=== PATIENT | male | born 1935 | race Caucasian/White ===

== ENCOUNTER 2017-09-11 12:09 | Emergency (ER) | payer MEDICARE ==
[2017-09-11 13:13] LABS: HEMATOCRIT 31.8 % (42.0-52.0); HEMOGLOBIN 9.9 gm/dl (14.0-18.0); MEAN CELL VOLUME 92.2 fl (81-97); MEAN CORPUSCULAR HGB CONC 31.1 g/dl (32-36); MEAN PLATELET VOLUME 9.5 fl (7.4-10.4); PLATELET COUNT 51 K/uL (130-400); RED BLOOD COUNT 3.45 M/uL (4.40-5.70); RED CELL DISTRIBUTION WIDTH 15.1 % (11.5-14.5); WHITE BLOOD COUNT W/O DIFF 3.9 K/uL (4.2-12.2)
[2017-09-11 13:16] LABS: MEAN CORPUSCULAR HEMOGLOBIN 28.6 pg (27-33)
[2017-09-11 13:26] LABS: INR 2.64; PROTHROMBIN TIME (PATIENT) 28.8 SECONDS (9.5-12.1)
--- NOTE | 2017-09-11 13:27 | Emergency Department Record ---
History of Present Illness - General Chief Complaint: Fall Injury Stated Complaint: FALL Time Seen by Provider: 09/11/17 12:44 Source: Patient, Family Mode of Arrival: Wheelchair Limitations: No limitations - History of Present Illness Initial Comments: pt fell on stairs yesterday, c/o pain in l wrist, ribs, r arm Complaint: Fall Onset/Timin -: Days(s) Fall From: Down stairs (#) When Fall Occurred: 24 hours [employer] Fall Witnessed: Yes, by family Place Fall Occurred: Home Loss of Consciousness: None Prolonged Down Time?: No Symptoms Prior to Fall: None Severity: Moderate Severity scale (1-10): 3 Quality: Aching Context: Tripped/slipped - [place] Coma Scale Eye Response: (4) Open spontaneously Motor Response: (6) Obeys commands Verbal Response: (5) Oriented [place] Total: 15 - Related Data Home Medications Medication Instructions Recorded Confirmed Last Taken Atorvastatin Calcium 40 mg PO DAILY 09/11/17 09/11/17 Unknown Furosemide [Lasix] 20 mg PO DAILY 09/11/17 09/11/17 Unknown Isosorbide Mononitrate [Imdur] 60 mg PO DAILY 09/11/17 09/11/17 Unknown Metoprolol Tartrate [Lopressor] 25 mg PO DAILY 09/11/17 09/11/17 Unknown Ranolazine [Ranexa] 1 tab PO BID 09/11/17 09/11/17 Unknown Risperidone [Risperdal] 5 mg PO BID 09/11/17 09/11/17 Unknown Trazodone HCl 50 mg PO BID 09/11/17 09/11/17 Unknown Warfarin Sodium [Coumadin] 7.5 mg PO DAILY 09/11/17 09/11/17 Unknown Allergies Allergy/AdvReac Type Severity Reaction Status Date / Time codeine Allergy Mild ITCHING Verified 06/13/16 15:57 Travel Screening - Travel/Exposure Within Last 30 Days Have you traveled within the last 30 days?: No - Travel/Exposure Within Last Year Have you traveled outside the [place] in the last year?: No - Additonal Travel Details Have you been exposed to anyone with a communicable illness?: No Review of Systems Reviewed: No additional complaints except as noted below Constitutional: Reports: As per HPI. Denies: Chills, Fever, Malaise, Night sweats, Weakness, Weight change Eyes: Reports: As per HPI. Denies: Eye discharge, Eye pain, Photophobia, Vision change ENT: Reports: As per HPI. Denies: Congestion, Dental pain, Ear pain, Epistaxis , Hearing loss, Throat pain Respiratory: Reports: As per HPI. Denies: Cough, Dyspnea, Hemoptysis, Stridor, Wheezes Cardiovascular: Reports: As per HPI. Denies: Arrhythmia, Chest pain, Dyspnea on exertion, Edema, Murmurs, Orthopnea, Palpitations, Paroxysmal nocturnal dyspnea, Rheumatic Fever, Syncope Endocrine: Reports: As per HPI. Denies: Fatigue, Heat or cold intolerance, Polydipsia, Polyuria Gastrointestinal: Reports: As per HPI. Denies: Abdominal pain, Constipation, Diarrhea, Hematemesis, Hematochezia, Melena, Nausea, Vomiting Genitourinary: Reports: As per HPI. Denies: Dysuria, Frequency, Hematuria, Incontinence, Retention, Testicular pain, Testicular mass, Urgency Musculoskeletal: Reports: As per HPI. Denies: Arthralgia, Back pain, Gout, Joint swelling, Myalgia, Neck pain Skin: Reports: As per HPI. Denies: Bruising, Change in color, Change in hair/ nails, Lesions, Pruritus, Rash Neurological: Reports: As per HPI. Denies: Abnormal gait, Confusion, Headache, Numbness, Paresthesias, Seizure, Tingling, Tremors, Vertigo, Weakness Psychiatric: Reports: As per HPI. Denies: Anxiety, Auditory hallucinations, Depression, Homicidal thoughts, Suicidal thoughts, Visual hallucinations Hematological/Lymphatic: Reports: As per HPI. Denies: Anemia, Blood Clots, Easy bleeding, Easy bruising, Swollen glands Past Medical History - SOCIAL HISTORY Smoking Status: Never smoker Alcohol Use: None Drug Use: None - RESPIRATORY Hx Respiratory Disorders: No - CARDIOVASCULAR Hx Cardio Disorders: Yes Hx Abnormal EKG: Yes Hx Cardiac Cath: Yes Hx Chest Pain: Yes Hx CHF: Yes Hx Deep Vein Thrombosis: No Hx Edema: Yes Hx Heart Attack: Yes Hx Hypertension: Yes Hx Hypotension: No Hx Irregular Heartbeat: No Hx Palpitations: No Hx Pacemaker/Defib: No Hx Vascular Disease: No - NEURO Hx Neuro Disorders: Yes Hx Dementia: Yes - GI Hx GI Disorders: No - Hx Genitourinary Disorders: No - ENDOCRINE Hx Endocrine Disorders: Yes Hx Diabetes: Yes (takes no medicaitons) Hx Thyroid Disease: No - MUSCULOSKELETAL Hx Musculoskeletal Disorders: No - PSYCH Hx Psych Problems: No - HEMATOLOGY/ONCOLOGY Hx Hematology/Oncology Disorders: No Family Medical History Any Significant Family History?: Yes Hx Heart Disease: Father Physical Exam - General General Appearance: Alert, Oriented x3, Cooperative, Mild distress - Head Head exam: Normal inspection - Eye Eye exam: Normal appearance, PERRL, EOMI Pupils: Normal accommodation - ENT ENT exam: Normal exam, Mucous membranes moist, Normal external ear exam, Normal orophraynx, TM's normal bilaterally Ear exam: Normal external inspection. negative: External canal tenderness Nasal Exam: Normal inspection. negative: Discharge, Sinus tenderness Mouth exam: Normal external inspection, Tongue normal Teeth exam: Normal inspection. negative: Dental caries Throat exam: Normal inspection. negative: Tonsillar erythema, Tonsillar exudate - Neck Neck exam: Normal inspection, Full ROM. negative: Tenderness - Respiratory Respiratory exam: Normal lung sounds bilaterally. negative: Respiratory distress - Cardiovascular Cardiovascular Exam: Regular rate, Normal rhythm, Normal heart sounds - GI/Abdominal GI/Abdominal exam: Soft, Normal bowel sounds. negative: Tenderness - Rectal Rectal exam: Deferred - exam: Deferred - Extremities Extremities exam: Full ROM, Normal capillary refill, Tenderness Image of Full Body: 1 - tender 2 - skin tear, tender - Back Back exam: Reports: Normal inspection, Full ROM. Denies: Muscle spasm, Rash noted, Tenderness - Neurological Neurological exam: Alert, CN II-XII intact, Normal gait, Oriented X3 - Psychiatric Psychiatric exam: Normal affect, Normal mood - Skin Skin exam: Dry, Intact, Normal color, Warm Course Vital Signs 09/11/17 12:15 Temperature 97.4 F L Pulse Rate 88 Respiratory 20 Rate Blood Pressure 114/65 Pulse Ox 99 Medical Decision Making - Lab Data Result diagrams: 09/11/17 13:05 09/11/17 13:05 Lab Results 09/11/17 Range/Units 13:05 WBC 3.9 L (4.2-12.2) K/uL RBC 3.45 L (4.40-5.70) M/uL Hgb 9.9 L (14.0-18.0) gm/dl Hct 31.8 L (42.0-52.0) % MCV 92.2 (81-97) fl MCH 28.6 (27-33) pg MCHC 31.1 L (32-36) g/dl RDW 15.1 H (11.5-14.5) % Plt Count 51 L (130-400) K/uL MPV 9.5 (7.4-10.4) fl Eosinophils % Not Reportable Basophils % Not Reportable Disposition Disposition: Discharge Clinical Impression: Rib fractures Qualifiers: Encounter type: initial encounter Rib fracture type: multiple ribs Fracture type: closed Laterality: right Qualified Code(s): S22.41XA - Multiple fractures of ribs, right side, initial encounter for closed fracture Disposition: Home, Self-Care Condition: (1) Good Instructions: Fall Prevention for Older Adults (ED), Rib Fracture (ED), Skin Tear (ED) Additional Instructions: follow up with family doctor. return sooner if worse. deep inspiration times 5 every hour. tylenol every 4-6 hours for pain. ice to sore area Forms: Patient Portal Access Quality - Quality Measures Quality Measures: N/A - Blood Pressure Screening Does Patient Have Any of the Following: No Blood Pressure Classification: Normal BP Reading Systolic Measurement: 114 Diastolic Measurement: 65 Screening for High Blood Pressure: < Normal BP, F/U Not Required > [G8783]
[2017-09-11 13:29] LABS: CREATININE 1.8 mg/dL (0.7-1.2)
--- NOTE | 2017-09-11 14:40 | RADIOLOGY REPORT ---
EXAM: CHEST, TWO VIEWS HISTORY: FALL, COUGH, RIB PAIN. TECHNIQUE: Two views of the chest were obtained. Comparison: Chest x-ray 04/25/17. Encounter: Initial. FINDINGS: Sternal wires in left side pacemaker are present. The lungs are clear. The cardiac silhouette and diaphragm are unremarkable. Osteopenia with compromised rib detail. 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 No obvious displaced rib fractures. IMPRESSION: 1. THE LUNGS ARE CLEAR. 2. COMPROMISED RIB DETAIL DUE TO OSTEOPENIA AND CHEST X-RAY TECHNIQUE. NO DISPLACED RIB FRACTURES. 3. CHRONIC OSTEOPOROTIC COMPRESSION FRACTURE LOWER THORACIC SPINE. JOB NUMBER: [id number] [facility]
--- NOTE | 2017-09-11 14:59 | RADIOLOGY REPORT ---
EXAM: LEFT WRIST, THREE VIEWS HISTORY: FALL, LEFT WRIST INJURY AND PAIN. TECHNIQUE: Three views of the left wrist were obtained. Comparison: None. Encounter: Initial. FINDINGS: Osteopenia. Ulnar neutral variance. No acute fracture or dislocation. 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 Vascular calcification. IMPRESSION: NEGATIVE FOR ACUTE FRACTURE OF THE LEFT WRIST. JOB NUMBER: [id number] [facility]
--- NOTE | 2017-09-11 15:01 | RADIOLOGY REPORT ---
EXAM: RIGHT HUMERUS, THREE VIEWS HISTORY: FALL, SKIN ABRASIONS, RIGHT HUMERAL INJURY AND PAIN. TECHNIQUE: Three views of the right humerus were obtained. Comparison: None. FINDINGS: The right humerus is intact with no acute humeral fracture. Anchoring devices overlie the right humeral head. Acute nondisplaced fractures anterior right ninth and tenth ribs. IMPRESSION: 1. INCIDENTAL NOTE IS MADE OF ACUTE NONDISPLACED FRACTURE OF THE ANTERIOR RIGHT NINTH AND TENTH RIBS. 2. THE RIGHT HUMERUS IS INTACT. JOB NUMBER: [id number] [facility]
[2017-09-11 17:15] LABS: BASO % 0.3 % (0-6); EOS % 9.8 % (0-6); GRAN % 64.8 % (47-80); LYMPH % 11.1 % (16-45)
[2017-09-11 17:16] LABS: PLATELET ESTIMATE DECREASED (NORMAL)
== END 2017-09-11 15:02 | disposition home or self-care (01) ==
LOC: ER 12:09
DX: S22.41XA Multiple fractures of ribs, right side, initial encounter for closed fracture (principal); S41.111A Laceration without foreign body of right upper arm, initial encounter; M25.532 Pain in left wrist; R05 Cough; E11.9 Type 2 diabetes mellitus without complications; I10 Essential (primary) hypertension; I25.2 Old myocardial infarction; Z79.01 Long term (current) use of anticoagulants; W10.9XXA Fall (on) (from) unspecified stairs and steps, initial encounter; Y92.009 Unspecified place in unspecified non-institutional (private) residence as the place of occurrence of the external cause
CPT/HCPCS: 71020; 80048; 85027; 85610; 99283; 99284

== ENCOUNTER 2017-09-23 15:45 | Emergency (ER) | payer MEDICARE ==
[2017-09-23] MEDS ORDERED: 0.9 % SODIUM CHLORIDE 1000ML 500 ML IV SCH (16:30)
--- NOTE | 2017-09-23 16:31 | Emergency Department Record ---
History of Present Illness - General Chief complaint: Male Urogenital Problem Stated complaint: POSSIBLE UTI Time Seen by Provider: 09/23/17 16:26 Source: Family Mode of Arrival: Wheelchair Limitations: No limitations - History of Present Illness Initial comments: 82 yo male presents to ED for evaluation of decreased level of responsiveness for the past several days, decreased PO intake, and increased agitation at home. Family at the bedside reports a history of dementia, has been worsening of late. Family denies fevers, chills, or recent illness. Family called visiting nurse, was told to come to ED for possible UTI. MD Complaint: Other Onset/Timin -: Days(s) Severity: Moderate Consistency: Constant Improves with: None Worsens with: None - Related Data Sexually active: No Allergies Allergy/AdvReac Type Severity Reaction Status Date / Time codeine Allergy Mild ITCHING Verified 09/23/17 16:21 Travel Screening - Travel/Exposure Within Last 30 Days Have you traveled within the last 30 days?: No - Travel/Exposure Within Last Year Have you traveled outside the [place] in the last year?: No - Additonal Travel Details Have you been exposed to anyone with a communicable illness?: No - Travel Symptoms Symptom Screening: None Review of Systems ROS unobtainable: Due to mental status Past Medical History - SOCIAL HISTORY Smoking Status: Never smoker Alcohol Use: None Drug Use: None - RESPIRATORY Hx Respiratory Disorders: No - CARDIOVASCULAR Hx Cardio Disorders: Yes Hx Abnormal EKG: Yes Hx Cardiac Cath: Yes Hx Chest Pain: Yes Hx CHF: Yes Hx Deep Vein Thrombosis: No Hx Edema: Yes Hx Heart Attack: Yes Hx Hypertension: Yes Hx Hypotension: No Hx Irregular Heartbeat: No Hx Palpitations: No Hx Pacemaker/Defib: Yes (AICD) Hx Vascular Disease: No - NEURO Hx Neuro Disorders: Yes Hx Dementia: Yes - GI Hx GI Disorders: No - Hx Genitourinary Disorders: No - ENDOCRINE Hx Endocrine Disorders: Yes Hx Diabetes: Yes (takes no medicaitons) Hx Thyroid Disease: No - MUSCULOSKELETAL Hx Musculoskeletal Disorders: No - PSYCH Hx Psych Problems: No - HEMATOLOGY/ONCOLOGY Hx Hematology/Oncology Disorders: No Family Medical History Any Significant Family History?: Yes Hx Heart Disease: Father Physical Exam - General General Appearance: Other (awake, does not respond to voice, ) Limitations: Altered mental status - Head Head exam: Atraumatic, Normocephalic, Normal inspection Head exam detail: negative: Abrasion, Contusion, Morse's sign, General tenderness, Hematoma, Laceration - Eye Eye exam: Normal appearance. negative: Conjunctival injection, Periorbital swelling, Periorbital tenderness, Scleral icterus - ENT Ear exam: negative: Auricular hematoma, Auricular trauma Nasal Exam: negative: Active bleeding, Discharge, Dried blood, Foreign body Mouth exam: negative: Drooling, Laceration, Muffled voice, Tongue elevation - Neck Neck exam: Normal inspection. negative: Meningismus, Tenderness - Respiratory Respiratory exam: Normal lung sounds bilaterally. negative: Rales, Respiratory distress, Rhonchi, Stridor - Cardiovascular Cardiovascular Exam: Regular rate, Normal rhythm, Normal heart sounds - GI/Abdominal GI/Abdominal exam: Soft. negative: Rebound, Rigid, Tenderness - Rectal Rectal exam: Deferred - exam: Deferred - Extremities Extremities exam: Normal inspection, Pedal edema. negative: Tenderness - Back Back exam: Denies: CVA tenderness (R), CVA tenderness (L) - Neurological Neurological exam: Alert, Normal gait, Oriented X3 - Psychiatric Psychiatric exam: Normal affect, Normal mood - Skin Skin exam: Normal color. negative: Abrasion Type of lesion: negative: abrasion Course Vital Signs 09/23/17 16:10 Temperature 98.0 F Pulse Rate 86 Respiratory 20 Rate Blood Pressure 145/86 Pulse Ox 96 - Reevaluation(s) Reevaluation #1: 09/23/17 17:10 Labs reviewed, INR 4.64, BUN 38/Creatinine 1.8, Hgb 8.6, platelets are 99K. UA pending. Reevaluation #2: 09/23/17 17:33 CT Brain: Bilateral SDH Bialteral acute SAH Left sided acute SDH Ventricular hemorrhage present. K-centra ordered to infuse to reverse Coumadin. Will initiate transfer to [facility] for Neuro ICU admission. Reevaluation #3: 09/23/17 17:42 Case was discussed with Dr. Garrison (Supervisor Residential) and Dr. Miranda (Neurosurgery), will accept transfer to [facility] NICU. Did not recommend Vitamin K in addition to Kcentra. Patient and family members were updated on all results thus far as well pending transfer. Reevaluation #4: 09/23/17 18:24 Patient reassessed, Kcentra is infusing, resting comfortably awaiting bed assignment at [facility]. Reevaluation #5: 09/23/17 18:44 Bed assignment received, ACLS rig contacted for transfer. Medical Decision Making - Lab Data Result diagrams: 09/23/17 16:30 09/23/17 16:30 Critical Care Time Critical Care Time: Yes Total Critical Care Time: 60 Critical Care Time: Diagnosis and treatment for acute on chronic SDH, SAH, neurosurgery consultation , reversal of elevated INR level, and initiation of transfer to [facility] Neuro ICU. Disposition Disposition: Transfer Clinical Impression: SDH (subdural hematoma), SAH (subarachnoid hemorrhage), Warfarin-induced coagulopathy CRF (chronic renal failure) Qualifiers: Chronic kidney disease stage: stage 3 (moderate) Qualified Code(s): N18.3 - Chronic kidney disease, stage 3 (moderate) Anemia Qualifiers: Anemia type: unspecified type Qualified Code(s): D64.9 - Anemia, unspecified Disposition: Acute Care Hospital Transfer Transfer To: [facility] Reason For Transfer: Neurosurgery consultation for SAH/SDH Accepting Physician: Hugo Time Discussed w/Accepting Physician: 17:49 Condition: (3) Guarded Forms: Patient Portal Access Time of Disposition: 17:49 Quality - Quality Measures Quality Measures: N/A - Blood Pressure Screening Does Patient Have Any of the Following: Active Dx of HTN Blood Pressure Classification: Pre-Hypertensive BP Reading Systolic Measurement: 145 Diastolic Measurement: 86 Screening for High Blood Pressure: Patient Exclusion, Hx of HTN [G9744]
[2017-09-23 16:47] LABS: HEMATOCRIT 27.3 % (42.0-52.0); HEMOGLOBIN 8.6 gm/dl (14.0-18.0); MEAN CELL VOLUME 91.6 fl (81-97); MEAN CORPUSCULAR HGB CONC 31.5 g/dl (32-36); MEAN PLATELET VOLUME 9.9 fl (7.4-10.4); PLATELET COUNT 99 K/uL (130-400); RED BLOOD COUNT 2.98 M/uL (4.40-5.70); RED CELL DISTRIBUTION WIDTH 15.5 % (11.5-14.5)
[2017-09-23 16:53] LABS: MEAN CORPUSCULAR HEMOGLOBIN 28.8 pg (27-33)
[2017-09-23 17:02] LABS: BILIRUBIN,TOTAL 0.8 mg/dL (0.2-1.0); CREATININE 1.8 mg/dL (0.7-1.2)
[2017-09-23 17:03] LABS: TOTAL PROTEIN 7.2 g/dL (6.6-8.7)
[2017-09-23 17:05] LABS: HYPOCHROMIA 1+; INR 4.64; PLATELET ESTIMATE DECREASED (NORMAL); PROTHROMBIN TIME (PATIENT) 50.9 SECONDS (9.5-12.1)
[2017-09-23 17:07] LABS: ALB/GLOB RATIO 1.2 (1.1-1.8); ALBUMIN 3.9 g/dL (4.0-5.0)
[2017-09-23 17:17] LABS: LACTIC ACID 2.2 mmol/L (0.5-2.2)
[2017-09-23 17:19] LABS: THYROID STIMULATING HORMONE 3.78 uIU/mL (0.270-4.20)
[2017-09-23] MEDS ORDERED: KCENTRA IV ONE (17:32)
[2017-09-23] MEDS ORDERED: KCENTRA (PCC) 1,000 UNIT KIT IV ONE ×2 (17:32)
--- NOTE | 2017-09-25 01:12 | CT SCAN REPORT ---
EXAM: CT SCAN HEAD WO CONTRAST HISTORY: ALTERED LEVEL OF CONSCIOUSNESS. TECHNIQUE: Routine noncontrast CT images of the head were obtained. COMPARISON: 06/30/16. FINDINGS: There is evidence for bilateral intraaxial and extraaxial hemorrhages. There appears to be chronic bilateral subdurals with isointense extraaxial fluid collections measuring 8 mm in thickness bilaterally. Additionally, there are findings of acute subdural hematoma on the left with greatest thickness at the level of the left anteroinferior temporal lobe measuring 13 mm in thickness. Please note, however, that acute subdural blood products do collect both within the left parietal as well as frontal region. Additionally, subarachnoid blood products are seen bilaterally, left greater than right, primarily in the temporal lobes. Finally, intraventricular blood is noted layering posteriorly within both occipital horns. There is no evidence for midline shift. Basilar cisterns remain patent. No evidence for hydrocephalous. There are findings of similar generalized cerebral atrophy and chronic microvascular ischemia. Atherosclerotic calcifications are seen. The paranasal sinuses and mastoid air cells are clear. Orbital contents are unremarkable. IMPRESSION: 1. THERE IS EVIDENCE FOR BILATERAL INTRAAXIAL AND EXTRAAXIAL HEMORRHAGES. THERE IS AN ACUTE LEFT SUBDURAL HEMATOMA, BILATERAL LEFT GREATER THAN RIGHT SUBARACHNOID HEMORRHAGES, AND BILATERAL INTRAVENTRICULAR BLOOD PRODUCTS. 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 NO EVIDENT MIDLINE SHIFT OR MASS EFFECT AT THIS TIME. 2. FINDINGS WERE DISCUSSED WITH EMERGENCY DEPARTMENT PHYSICIAN AT 5:23 P.M., 09/23/17. JOB NUMBER: [id number] [facility]
== END 2017-09-23 19:02 | disposition short-term general hospital (02) ==
LOC: ER 15:45
DX: D68.32 Hemorrhagic disorder due to extrinsic circulating anticoagulants (principal); I62.01 Nontraumatic acute subdural hemorrhage; I60.8 Other nontraumatic subarachnoid hemorrhage; T45.515A Adverse effect of anticoagulants, initial encounter; I13.0 Hypertensive heart and chronic kidney disease with heart failure and stage 1 through stage 4 chronic kidney disease, or unspecified chronic kidney disease; N18.3 Chronic kidney disease, stage 3 (moderate); D64.9 Anemia, unspecified; I50.9 Heart failure, unspecified; I25.2 Old myocardial infarction; F03.90 Unspecified dementia, unspecified severity, without behavioral disturbance, psychotic disturbance, mood disturbance, and anxiety; E11.9 Type 2 diabetes mellitus without complications
CPT/HCPCS: 99291 ×2; 96365; 96361; 83605; 82140; 85610; 80053; 84443; 85027; 83880; 70450; C9132 ×2; J7030